=== PATIENT | male | born 1970 ===

== ENCOUNTER 2023-01-02 14:03 | Outpatient (REF) | payer OTHER, SELFPAY ==
--- NOTE | ~2023-01-02 | XR_ITS ---
EXAMINATION: XR SHOULDER, LEFT CLINICAL INFORMATION: Pain in left shoulder COMPARISON: None TECHNIQUE: AP external rotation, Grashey, scapular Y, and axillary views of the left shoulder. FINDINGS: There is mild acromioclavicular osteoarthritis. Glenohumeral joint is well preserved. No fracture. Alignment is anatomic. Soft tissues are normal with no abnormal calcifications. XR/XR shoulder LT min 2V IMPRESSION: Mild acromioclavicular osteoarthritis. Otherwise no acute abnormality.
== END 2023-01-02 14:04 | disposition home or self-care (01) ==
LOC: HO.HOSX 14:03
PROVIDERS: Visit Provider Physician Assistant
DX: M19.012 Primary osteoarthritis, left shoulder (principal); M75.82 Other shoulder lesions, left shoulder; M25.552 Pain in left hip; M25.572 Pain in left ankle and joints of left foot; Z79.4 Long term (current) use of insulin
CPT/HCPCS: 20610; 73030; 99202; J1040